=== PATIENT | male | born 1960 | race Caucasian/White ===

== ENCOUNTER 2016-11-28 07:18 | Outpatient (CLI) | payer OTHER | END 2016-11-28 07:19 | disposition home or self-care (01) | DX: E78.5 Hyperlipidemia, unspecified (principal); Z12.5 Encounter for screening for malignant neoplasm of prostate ==

== ENCOUNTER 2017-07-26 07:22 | Outpatient (CLI) | payer BC, OTHER ==
[2017-07-26 19:25] LABS: BASOPHILS % (AUTO) 0.7 %; EOSINOPHILS # (AUTO) 0.1 10^3/uL (0.0-0.7); EOSINOPHILS % (AUTO) 2.4 %; HCT - HEMATOCRIT 48.2 % (42.0-52.0); LYMPHOCYTES # (AUTO) 1.4 10^3/uL (1.5-3.5); LYMPHOCYTES % (AUTO) 26.9 %; MEAN CORPUSCULAR HEMOGLOBIN 31.3 pg (27.0-31.0); MEAN CORPUSCULAR HGB CONC 33.2 g/dL (32.0-36.0); MEAN CORPUSCULAR VOLUME 94.3 fL (80.0-94.0); MEAN PLATELET VOLUME 8.4 fL (7.4-11.4); MONOCYTES # (AUTO) 0.5 10^3/uL (0.0-1.0); MONOCYTES % (AUTO) 10.4 %; NEUTROPHILS # (AUTO) 3.1 10^3/uL (1.5-6.6); NEUTROPHILS % (AUTO) 59.6 %; NUCLEATED RED BLOOD CELLS AUTO 0.1 /100WBC; RED BLOOD COUNT 5.11 10^6/uL (4.70-6.10); RED CELL DISTRIBUTION WIDTH 13.3 % (12.0-15.0); UNCORRECTED WHITE BLOOD COUNT 5.2 x10^3/uL; WHITE BLOOD COUNT 5.2 x10^3/uL (4.8-10.8)
[2017-07-26 20:10] LABS: HEMOGLOBIN A1C 0.72 g/dL
[2017-07-26 20:30] LABS: ALBUMIN/GLOBULIN RATIO 1.5 (1.0-2.2); BILIRUBIN,TOTAL 0.5 mg/dL (0.2-1.0); BUN - BLOOD UREA NITROGEN 21 mg/dL (6-20); CALCIUM 9.1 mg/dL (8.5-10.3); CARBON DIOXIDE - CO2 25 mmol/L (21-32); CHLORIDE 108 mmol/L (101-111); CHOL/HDL RATIO 3.2 (<5.0); CHOLESTEROL 168 mg/dL; CREATININE 0.8 mg/dL (0.6-1.2); GFR - MDRD 99 (>89); GLUCOSE 106 mg/dL (70-100); HDL CHOLESTEROL 52 mg/dL; POTASSIUM 4.5 mmol/L (3.5-5.0); SODIUM 137 mmol/L (135-145); TOTAL PROTEIN 6.8 g/dL (6.7-8.2); TRIGLYCERIDES 64 mg/dL; VLDL CHOLESTEROL 13 mg/dL
== END 2017-07-26 07:23 | disposition home or self-care (01) ==
LOC: LAB.WCP 07:22
PROVIDERS: ATTEND Family Medicine
DX: Z00.00 Encounter for general adult medical examination without abnormal findings (principal); R73.01 Impaired fasting glucose
CPT/HCPCS: 36415; 80053; 80061; 82043; 83036; 85025

== ENCOUNTER 2017-10-09 14:35 | Outpatient (CLI) | payer BC ==
--- NOTE | 2017-10-09 19:15 | CT Report ---
CT CHEST WITHOUT CONTRAST: 10/09/2017 CLINICAL INDICATION: Smoker, personal history of lung cancer, status post right lobectomy, [id number] history of smoking, quit within the 15 years. TECHNIQUE: Axial CT images of the chest were obtained without intravenous contrast, using low dose screening technique. In accordance with CT protocol optimization, one or more of the following dose reduction techniques were utilized for this exam: Automated exposure control, adjustment of mA and/or KV based on patient size, or use of iterative reconstructive technique. COMPARISON: Multiple previous chest CTs, most recently 01/06/2015. FINDINGS: The heart and great vessels are unremarkable. Postoperative changes in the right hilum are stable. The lungs again demonstrate extensive emphysema. Minimal scarring in the right lower lobe is stable. There are stable nodules in the lingula and left lower lobe, measuring up to 3 mm maximal diameter. No new or enlarging pulmonary nodule or mass lesion is identified. No effusion or pneumothorax is present. Osseous structures demonstrate degenerative changes. Limited evaluation of upper abdominal structures demonstrates normal adrenal glands. IMPRESSION: STABLE POSTOPERATIVE CHANGES. NO SIGNIFICANT INTERVAL CHANGE. RECOMMENDATIONS: Continue annual screening with low dose chest CT in 12 months. LUNG-RADS category 2 benign findings. TD: 10/09/2017 19:13
== END 2017-10-09 14:36 | disposition home or self-care (01) ==
LOC: DI 14:35
PROVIDERS: ATTEND Family Medicine
DX: Z12.2 Encounter for screening for malignant neoplasm of respiratory organs (principal); Z87.891 Personal history of nicotine dependence; Z85.118 Personal history of other malignant neoplasm of bronchus and lung; Z90.2 Acquired absence of lung [part of]

== ENCOUNTER 2017-10-23 17:45 | Outpatient (CLI) | payer BC ==
--- NOTE | 2017-10-24 09:36 | XRAY Report ---
STANDING THREE VIEW RIGHT KNEE: 10/23/2017 CLINICAL INDICATION: Pain. FINDINGS: Standing AP, lateral, sunrise views of the right knee demonstrate minimal osteoarthritis, with tiny marginal osteophytes. There is no evidence of acute fracture or dislocation. A small effusion is noted. IMPRESSION: MINIMAL OSTEOARTHRITIS, WITH A SMALL EFFUSION. TD: 10/24/2017 09:35
== END 2017-10-23 17:46 | disposition home or self-care (01) ==
LOC: DI 17:45
PROVIDERS: ATTEND Family Medicine
DX: M17.11 Unilateral primary osteoarthritis, right knee (principal); M25.461 Effusion, right knee

== ENCOUNTER 2019-01-31 08:00 | Outpatient (CLI) | payer BC ==
[2019-01-31 14:00] LABS: BASOPHILS % (AUTO) 1.1 %; EOSINOPHILS # (AUTO) 0.2 10^3/uL (0.0-0.7); EOSINOPHILS % (AUTO) 3.4 %; HGB - HEMOGLOBIN 16.4 g/dL (14.0-18.0); LYMPHOCYTES # (AUTO) 1.1 10^3/uL (1.5-3.5); LYMPHOCYTES % (AUTO) 24.6 %; MEAN CORPUSCULAR HEMOGLOBIN 31.4 pg (27.0-31.0); MEAN CORPUSCULAR HGB CONC 33.9 g/dL (32.0-36.0); MEAN CORPUSCULAR VOLUME 92.8 fL (80.0-94.0); MEAN PLATELET VOLUME 8.2 fL (7.4-11.4); MONOCYTES # (AUTO) 0.5 10^3/uL (0.0-1.0); MONOCYTES % (AUTO) 11.8 %; NEUTROPHILS # (AUTO) 2.7 10^3/uL (1.5-6.6); NEUTROPHILS % (AUTO) 59.1 %; PLT - PLATELET COUNT 253 10^3/uL (130-450); RED BLOOD COUNT 5.21 10^6/uL (4.70-6.10); RED CELL DISTRIBUTION WIDTH 13.2 % (12.0-15.0); WHITE BLOOD COUNT 4.5 x10^3/uL (4.8-10.8)
[2019-01-31 14:16] LABS: ALBUMIN 4.3 g/dL (3.2-5.5); ALBUMIN/GLOBULIN RATIO 1.4 (1.0-2.2); ALKALINE PHOSPHATASE 55 IU/L (42-121); ALT ALANINE AMINOTRANSFERASE 32 IU/L (10-60); AST ASPARTATE AMINOTRANSFERASE 25 IU/L (10-42); BILIRUBIN,TOTAL 0.7 mg/dL (0.2-1.0); BUN - BLOOD UREA NITROGEN 19 mg/dL (6-20); CALCIUM 9.2 mg/dL (8.5-10.3); CARBON DIOXIDE - CO2 26 mmol/L (21-32); CHLORIDE 103 mmol/L (101-111); CHOL/HDL RATIO 2.9 (<5.0); CHOLESTEROL 167 mg/dL; CREATININE 0.8 mg/dL (0.6-1.2); GFR - MDRD 99 (>89); GLUCOSE 114 mg/dL (70-100); HDL CHOLESTEROL 57 mg/dL; LDL CHOLESTEROL,CALCULATED 101 mg/dL; LDL/HDL RATIO 1.8 (<3.6); SODIUM 139 mmol/L (135-145); TOTAL PROTEIN 7.4 g/dL (6.7-8.2); VLDL CHOLESTEROL 9 mg/dL
[2019-02-01 12:20] LABS: HEPATITIS C ANTIBODY NON-REACTIVE (NON-REACTIVE)
== END 2019-01-31 23:59 | disposition home or self-care (01) ==
LOC: LAB.WCP 08:00
PROVIDERS: ATTEND Family Medicine
DX: Z00.00 Encounter for general adult medical examination without abnormal findings (principal); Z12.5 Encounter for screening for malignant neoplasm of prostate; Z11.59 Encounter for screening for other viral diseases
CPT/HCPCS: 36415; 80053; 80061; 83721; 84153; 85025; 86803

== ENCOUNTER 2019-02-14 07:11 | Outpatient (CLI) | payer BC ==
--- NOTE | 2019-02-14 12:57 | CT Report ---
Reason: NICOTINE ADDICTION,IN REMISSION Procedure Date: 02/14/2019 Accession Number: [id number] / [id number] Procedure: CT - Low Dose Lung Cancer Screen CPT Code: FULL RESULT: EXAM CT LUNG SCREEN EXAM DATE: 02/14/2019 07:23 AM. HISTORY: 58-year-old patient with [id number] smoking history. Currently smoking: No. The patient quit smoking within the last 15 years. COMPARISON: CHEST SCREEN LOW DOSE W/O 10/09/2017 3:01 PM. TECHNIQUE: CT examination of the entire thorax without contrast was performed using low-dose technique. Thin section coronal, axial, sagittal and MIP axial images were obtained. In accordance with CT protocol optimization, one or more of the following dose reduction techniques were utilized for this exam: automated exposure control, adjustment of mA and/or KV based on patient size, or use of iterative reconstructive technique. FINDINGS: Nodules: Right upper lobe: Surgically absent. Right middle lobe: 4 mm nodule image 24 series 4. Right lower lobe: 1.9 x 1.4 cm groundglass nodule image 131. Left upper lobe: 4 mm nodule image 117. 1.0 x 0.9 cm Subsolid nodule image 132. Left lower lobe: 3 mm perifissural nodule image 196. 3 mm nodule image 107. Two 3 mm nodules on image 133. Emphysema: Moderate. Pleura: Mild pleural thickening on the posterior medial right pleura adjacent to a fissure with triangular consolidation containing bronchiectasis, most likely atelectasis due to scarring adhesion, possibly postsurgical. Pleural thickening focally also seen on image 31 series 4, related to the aforementioned finding. Aorta: Unremarkable. Mediastinum: Postsurgical changes related to right upper lobectomy. No overt mediastinal lymphadenopathy. Coronary calcifications: None. Other pulmonary findings: See pleura. Other extrapulmonary findings: None. IMPRESSION: Lung-RADS ASSESSMENT CATEGORY: 3 - probably benign. Probability of malignancy: 1-2%. RECOMMENDATION: Follow-up low-dose screening chest CT in 6 months as per lung RADS guidelines. RADIA
== END 2019-02-14 07:12 | disposition home or self-care (01) ==
LOC: DI 07:11
PROVIDERS: ATTEND Family Medicine
DX: Z12.2 Encounter for screening for malignant neoplasm of respiratory organs (principal); J43.9 Emphysema, unspecified; Z87.891 Personal history of nicotine dependence

== ENCOUNTER 2019-08-07 10:25 | Outpatient (CLI) | payer BC ==
--- NOTE | 2019-08-07 13:17 | XRAY Report ---
Reason: RIGHT ANKLE PAIN Procedure Date: 08/07/2019 Accession Number: [id number] / [id number] Procedure: WCP - Ankle 3 View RT CPT Code: Final Report FULL RESULT: EXAM: RIGHT ANKLE RADIOGRAPHY EXAM DATE: 08/07/2019 10:25 AM. CLINICAL HISTORY: RIGHT ANKLE PAIN. COMPARISON: None. TECHNIQUE: 3 views. FINDINGS: Bones: Os trigonum is noted. No fractures or bone lesions. Joints: Question trace tibiotalar joint effusion. No subluxations. The ankle mortise is normally aligned. Soft Tissues: Soft tissue swelling is seen in the ankle region lateral greater than medial. No radiopaque foreign body or soft tissue gas. IMPRESSION: No acute osseous abnormality. Soft tissue swelling and potential tibiotalar joint effusion, consistent with report of injury. RAD[facility]
== END 2019-08-07 10:26 | disposition home or self-care (01) ==
LOC: DI.WCP 10:25
PROVIDERS: ATTEND Family Medicine
DX: M25.571 Pain in right ankle and joints of right foot (principal); M79.89 Other specified soft tissue disorders

== ENCOUNTER 2020-02-06 07:26 | Outpatient (CLI) | payer BC, OTHER ==
[2020-02-06 12:01] LABS: BASOPHILS # (AUTO) 0.1 10^3/uL (0.0-0.1); EOSINOPHILS # (AUTO) 0.1 10^3/uL (0.0-0.7); EOSINOPHILS % (AUTO) 2.1 %; HGB - HEMOGLOBIN 15.5 g/dL (14.0-18.0); LYMPHOCYTES # (AUTO) 1.3 10^3/uL (1.5-3.5); LYMPHOCYTES % (AUTO) 21.9 %; MEAN CORPUSCULAR HEMOGLOBIN 29.3 pg (27.0-31.0); MEAN CORPUSCULAR HGB CONC 32.1 g/dL (32.0-36.0); MEAN CORPUSCULAR VOLUME 91.3 fL (80.0-94.0); MEAN PLATELET VOLUME 9.7 fL (7.4-11.4); MONOCYTES # (AUTO) 0.7 10^3/uL (0.0-1.0); MONOCYTES % (AUTO) 11.9 %; NEUTROPHILS # (AUTO) 3.7 10^3/uL (1.5-6.6); NEUTROPHILS % (AUTO) 62.9 %; PLT - PLATELET COUNT 325 10^3/uL (130-450); RED BLOOD COUNT 5.29 10^6/uL (4.70-6.10); WHITE BLOOD COUNT 5.8 x10^3/uL (4.8-10.8)
[2020-02-06 12:23] LABS: ALBUMIN 4.2 g/dL (3.2-5.5); ALBUMIN/GLOBULIN RATIO 1.3 (1.0-2.2); ALKALINE PHOSPHATASE 69 IU/L (42-121); ALT ALANINE AMINOTRANSFERASE 29 IU/L (10-60); AST ASPARTATE AMINOTRANSFERASE 24 IU/L (10-42); BILIRUBIN,TOTAL 0.7 mg/dL (0.2-1.0); BUN - BLOOD UREA NITROGEN 20 mg/dL (6-20); CARBON DIOXIDE - CO2 29 mmol/L (21-32); CHLORIDE 99 mmol/L (101-111); CHOL/HDL RATIO 3.6 (<5.0); CHOLESTEROL 193 mg/dL; CREATININE 0.7 mg/dL (0.6-1.2); GLUCOSE 112 mg/dL (70-100); HDL CHOLESTEROL 53 mg/dL; LDL CHOLESTEROL,CALCULATED 123 mg/dL; LDL/HDL RATIO 2.3 (<3.6); SODIUM 136 mmol/L (135-145); TOTAL PROTEIN 7.4 g/dL (6.7-8.2); VLDL CHOLESTEROL 17 mg/dL
[2020-02-06 12:28] LABS: HB2 TOTAL 16.4 g/dL; HEMOGLOBIN A1C 0.65 g/dL; HEMOGLOBIN A1C % 5.8 % (4.6-6.2)
== END 2020-02-06 23:59 | disposition home or self-care (01) ==
LOC: LAB.WCP 07:26
PROVIDERS: ATTEND Family Medicine
DX: I10 Essential (primary) hypertension (principal); E78.5 Hyperlipidemia, unspecified; R73.01 Impaired fasting glucose; Z12.5 Encounter for screening for malignant neoplasm of prostate
CPT/HCPCS: 36415; 80053; 80061; 83036; 83721; 84153; 85025

== ENCOUNTER 2020-04-19 07:14 | Day surgery (SDC) | payer OTHER ==
[2020-04-19] MEDS ORDERED: LACTATED RINGERS 1,000 ML IV ONE ×2 (07:18→09:49)
[2020-04-19] MEDS ORDERED: fentaNYL 250 MCG/5 ML VIAL IVP ONE (09:09)
[2020-04-19] MEDS ORDERED: MIDAZOLAM 2 MG/2 ML VIAL IVP ONE (09:09)
[2020-04-19 10:21] VITALS: BP 130/91
== END 2020-04-19 07:15 | disposition home or self-care (01) ==
LOC: SDS 07:14
PROVIDERS: ATTEND Internal Medicine Gastroenterology
PROC: 0DBN8ZZ Excision of Sigmoid Colon, Via Natural or Artificial Opening Endoscopic (ICD-10-PCS; principal; 2020-04-19 08:15)
DX: Z12.11 Encounter for screening for malignant neoplasm of colon (principal); K63.5 Polyp of colon; K57.30 Diverticulosis of large intestine without perforation or abscess without bleeding; I10 Essential (primary) hypertension; E78.5 Hyperlipidemia, unspecified; Z90.2 Acquired absence of lung [part of]; Z85.118 Personal history of other malignant neoplasm of bronchus and lung; Z87.891 Personal history of nicotine dependence
CPT/HCPCS: 45380; J3010; J7120

== ENCOUNTER 2021-02-10 08:00 | Outpatient (CLI) | payer OTHER ==
[2021-02-10 11:50] LABS: BASOPHILS % (AUTO) 0.7 %; EOSINOPHILS # (AUTO) 0.1 10^3/uL (0.0-0.7); EOSINOPHILS % (AUTO) 1.9 %; HCT - HEMATOCRIT 49.6 % (42.0-52.0); HGB - HEMOGLOBIN 16.5 g/dL (14.0-18.0); LYMPHOCYTES # (AUTO) 1.1 10^3/uL (1.5-3.5); LYMPHOCYTES % (AUTO) 21.2 %; MEAN CORPUSCULAR HEMOGLOBIN 31.5 pg (27.0-31.0); MEAN CORPUSCULAR HGB CONC 33.3 g/dL (32.0-36.0); MEAN CORPUSCULAR VOLUME 94.7 fL (80.0-94.0); MEAN PLATELET VOLUME 9.6 fL (7.4-11.4); MONOCYTES # (AUTO) 0.5 10^3/uL (0.0-1.0); NEUTROPHILS # (AUTO) 3.6 10^3/uL (1.5-6.6); PLT - PLATELET COUNT 296 10^3/uL (130-450); RED BLOOD COUNT 5.24 10^6/uL (4.70-6.10); RED CELL DISTRIBUTION WIDTH 12.1 % (12.0-15.0); WHITE BLOOD COUNT 5.4 x10^3/uL (4.8-10.8)
[2021-02-10 12:33] LABS: ESTIMATED AVERAGE GLUCOSE 123 mg/dL (70-100); HEMOGLOBIN A1c% 5.9 % (4.27-6.07)
[2021-02-10 12:50] LABS: ALBUMIN 4.5 g/dL (3.2-5.5); ALBUMIN/GLOBULIN RATIO 1.6 (1.0-2.2); ALKALINE PHOSPHATASE 53 IU/L (42-121); ALT ALANINE AMINOTRANSFERASE 43 IU/L (10-60); AST ASPARTATE AMINOTRANSFERASE 31 IU/L (10-42); BILIRUBIN,TOTAL 0.5 mg/dL (0.2-1.0); BUN - BLOOD UREA NITROGEN 23 mg/dL (6-20); CALCIUM 9.6 mg/dL (8.5-10.3); CARBON DIOXIDE - CO2 28 mmol/L (21-32); CHLORIDE 101 mmol/L (101-111); CHOL/HDL RATIO 3.7 (<5.0); CHOLESTEROL 212 mg/dL; CREATININE 0.8 mg/dL (0.6-1.2); GFR - MDRD 98 (>89); GLUCOSE 113 mg/dL (70-100); HDL CHOLESTEROL 58 mg/dL; LDL CHOLESTEROL,CALCULATED 141 mg/dL; LDL/HDL RATIO 2.4 (<3.6); SODIUM 137 mmol/L (135-145); TOTAL PROTEIN 7.3 g/dL (6.7-8.2); TRIGLYCERIDES 64 mg/dL; URIC ACID 4.8 mg/dL (2.6-7.2); VLDL CHOLESTEROL 13 mg/dL
== END 2021-02-10 23:59 | disposition home or self-care (01) ==
LOC: LAB.WCP 08:00
PROVIDERS: ATTEND Family Medicine
DX: R73.01 Impaired fasting glucose (principal); E78.5 Hyperlipidemia, unspecified; Z12.5 Encounter for screening for malignant neoplasm of prostate; M79.672 Pain in left foot; I10 Essential (primary) hypertension
CPT/HCPCS: 36415; 80053; 80061; 83036; 83721; 84153; 84550; 85025

== ENCOUNTER 2021-03-16 07:18 | Outpatient (CLI) | payer OTHER ==
--- NOTE | 2021-03-16 08:35 | CT Report ---
PROCEDURE: Low Dose Lung Cancer Screen INDICATIONS: NICOTINE ADDICTION IN REMISSION TECHNIQUE: Noncontrast low-dose images were acquired from the pulmonary apices to the posterior costophrenic ang les. Multiplanar MIP reformats were then acquired. For radiation dose reduction, the following was used: automated exposure control, adjustment of mA and/or kV according to patient size. COMPARISON: 03/26/2020, 09/16/2018, 10/09/2017. FINDINGS: Image quality: Excellent. Lungs and pleura: Moderate to severe centrilobular emphysema, left greater than right. Chronic focal peripheral remote right upper lobectomy. Atelectasis versus scarring focally in the superior segment of right lower lob e. Stable pulmonary nodules are as follows: Nodule 1: Right apex, 3 mm, image 56/4. Nodule 2: Subtle unchanged groundglass opacity, current image 290/4 and previous image 277/4 Nodules 3 and 4:2 separate pulmonary nodules in relative close proximity in the left lower lobe, jaylan uring 4 mm each. Reference image 274/4. Nodule 5: Inferior basal segment left lower lobe, image 226/4, 3 mm. Mediastinum: Heart size is normal. No pericardial effusion. No mediastinal adenopathy by size crit eria. Thoracic aorta and central pulmonary arteries are normal in size. Esophagus is normal in isabelle erick. No hiatal hernia. Bones and chest wall: No suspicious bony lesions. No vertebral body compression fractures. No axil harley or supraclavicular adenopathy by size criteria. The thyroid is poorly visualized secondary to l ow-dose techniques. Abdomen: Visualized upper abdomen solid organs and bowel loops appear normal in the absence of contr ast. IMPRESSION: 1. LungRads Category 2: Benign appearance or behavior-nodules with a very low likelihood of becoming a clinically active cancer due to size or lack of growth. Multiple pulmonary nodules as described abo ve 2. Annual follow-up low-dose noncontrast CT of the chest is recommended for lung cancer screening. 3. Clinically significant or potentially clinically significant findings (nonlung cancer): Moderate t o severe centrilobular emphysema, remote right upper lobe resection, mild coronary artery calcificati ons. CLINICAL RECOMMENDATION STATEMENTS: In patients <35 years with an ITN detected on CT, MRI, or extrathyroidal ultrasound, the Committee re commends further evaluation with dedicated thyroid ultrasound if the nodule is ?1 cm and has no suspi cious imaging features, and if the patient has normal life expectancy. In patients ?35 years with an ITN detected on CT, MRI, or extrathyroidal ultrasound, the Committee re commends further evaluation with dedicated thyroid ultrasound if the nodule is ?1.5 cm and has no anthony picious imaging features, and if the patient has normal life expectancy. (ACR, 2014) Reviewed by: Milton Reyes MD on 03/16/2021 8:34 AM PDT Approved by: Milton Reyes MD on 03/16/2021 8:34 AM PDT Station ID: [id number]
== END 2021-03-16 07:19 | disposition home or self-care (01) ==
LOC: DI 07:18
PROVIDERS: ATTEND Family Medicine
DX: Z12.2 Encounter for screening for malignant neoplasm of respiratory organs (principal); Z87.891 Personal history of nicotine dependence; R91.8 Other nonspecific abnormal finding of lung field

== ENCOUNTER 2022-03-24 13:42 | Emergency (ER) | payer OTHER ==
[2022-03-24] MEDS ORDERED: lidocaine 1% 20 ML MDV SUBQ ONE (15:17)
[2022-03-24] MEDS ORDERED: BACITRACIN ZINC OINT 1 PACKET TOP STA (15:18)
[2022-03-24] MEDS ORDERED: LIDOCAINE 1% 2 ML VIAL MC ONE (15:30)
[2022-03-24] MEDS ORDERED: cefTRIAXone 1 GM VIAL IM STA (15:30)
--- NOTE | 2022-03-24 15:43 | XRAY Report ---
PROCEDURE: Finger(s) LT INDICATIONS: TRAUMA TECHNIQUE: AP hand, views of the third and fourth finger(s) acquired. COMPARISON: None FINDINGS: Bones: There is amputation of the second digit distal to the midportion of the middle phalanx. There is a comminuted fracture of the distal third phalanx most severe distally although fracture lucency i s present at the base extending into the articular surface. No suspicious bony lesions. Soft tissues: No suspicious soft tissue calcifications. Soft tissue laceration is present at the th ird digit. IMPRESSION: Partial second digit amputation as well as comminuted fracture of the third distal phalanx. Reviewed by: America Rizzo MD on 03/24/2022 3:42 PM PDT Approved by: America Rizzo MD on 03/24/2022 3:42 PM PDT Station ID: [id number]
--- NOTE | 2022-03-24 16:30 | ED Physician Documentation ---
History of Present Illness - Stated complaint Stated Complaint: FINGER CUT ON LEFT HAND - Chief complaint Chief Complaint: Laceration - Additonal information Additional information: 5-year-old male presents emergency department for evaluation of left finger lacerations sustained when using a table saw. He has a macerated distal middle finger laceration as well as a distal tip ring finger laceration. Uncertain of last tetanus. He is right-hand dominant. He does have a history of previous left index finger tip amputation also from a workplace injury many years ago Review of Systems Constitutional: reports: Reviewed and negative Throat: reports: Reviewed and negative Cardiac: reports: Reviewed and negative Respiratory: reports: Reviewed and negative Skin: reports: Laceration (s) Musculoskeletal: reports: Extremity pain PD PAST MEDICAL HISTORY - Past Medical History Past Medical History: Yes Cardiovascular: Hypertension Respiratory: Other Endocrine/Autoimmune: None GI: None, GERD : None HEENT: Chronic vision loss Psych: None Musculoskeletal: Osteoarthritis Derm: Eczema, Rosacea Other Past Medical History: lung cancer 2013 - Past Surgical History Past Surgical History: Yes Cardiovascular: Lobectomy, Other HEENT: Tonsil/Adenoidectomy - Present Medications Home Medications: Ambulatory Orders Medication Instructions Recorded Confirmed Losartan Potassium 100 mg PO DAILY 04/16/20 04/16/20 Omeprazole 20 mg PO DAILY 04/16/20 04/16/20 hydroCHLOROthiazide 25 mg PO DAILY 04/16/20 04/16/20 [Hydrochlorothiazide] cephALEXin [Keflex] 500 mg PO Q6H #28 cap 03/24/22 oxyCODONE [Roxicodone] 5 mg PO TID PRN #20 tablet 03/24/22 - Allergies Allergies/Adverse Reactions: Allergies Allergy/AdvReac Type Severity Reaction Status Date / Time hydrocodone Allergy Itching Verified 03/24/22 14:12 morphine Allergy Itching Verified 03/24/22 14:12 lisinopril AdvReac Unknown Verified 03/24/22 14:12 Penicillins AdvReac itching Verified 03/24/22 14:12 and anxious - Social History Does the pt smoke?: No Smoking Status: Never smoker PD ED PE EXPANDED - General General: Alert, No acute distress - Extremities Extremities: Left hand (Macerated distal middle fingertip laceration that goes through the lateral side of the nailbed. Patient is able to flex and extend at DIP joint. Sensation is preserved.), Left finger(s) (2 cm laceration slightly macerated distal tip of index finger) Results - Vitals Vitals: Vital Signs - 24 hr 03/24/22 03/24/22 14:09 14:12 Temperature 36.3 C L 36.3 C L Heart Rate 83 83 Respiratory 16 16 Rate Blood Pressure 167/93 H 167/93 H O2 Saturation 93 93 Oxygen O2 Source Room air Procedures - Laceration (location) left middle finger Length in cm: 3 Wound type: Irregular, Into muscle, Exposure of bone Neurovascular status: Sensory intact, Motor intact Tendon involvement: Tendon intact Anesthesia: Lidocaine 1% Wound preparation: Irrigated copiously NS, Debrided extensively, Wound explored, To the base, Multiple flaps aligned Skin layer closure: Interrupted, Size #-0 - enter number (4), Sutures - enter # (4) Other: Tetanus UTD, Other (Macerated left distal middle finger laceration required debridement of the traumatic edges. The wound was approximated using a total of 4 sutures. Nailbed did require some laceration Repair) ring finger laceration left Length in cm: 2 Wound type: Irregular, Clean Neurovascular status: Sensory intact, Motor intact Tendon involvement: Tendon intact Anesthesia: Lidocaine 1% Skin layer closure: Nylon, Interrupted, Size #-0 - enter number (4), Sutures - enter # (3) Other: Patient tolerated well, No complications, Neurovascular intact, Tetanus UTD, Other (Left ring finger laceration at the distal tip. Wound edges were approximated using 3 sutures. Macerated portions of the wound edges were cut away.) PD MEDICAL DECISION MAKING - ED course Complexity details: considered differential, d/w patient, d/w family ED course: 5-year-old male presents emergency department for evaluation of left ring and middle finger laceration sustained when using a table saw at work. 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 He is right-hand dominant. Tetanus was updated today. The x-ray does show a distal comminuted fracture of the distal phalanx. This is considered an open fracture. He was administered Ceftriaxone here in the emergency department and will be sent home with prescription for Keflex. He did have a smaller albeit macerated ring finger wound that was also debrided and approximated using sutures. He is advised to have follow-up with a provider within the 1 week for wound check. Further time off work will be determined by the alternative provider though at this time I am giving him 1 week. Labor and industries claim #[id number] completed Departure - Departure Disposition: 01 Home, Self Care Clinical Impression: Laceration of middle finger Qualifiers: Encounter type: initial encounter Damage to nail status: with damage Foreign body presence: without foreign body Laterality: left Qualified Code(s): S61.313A - Laceration without foreign body of left middle finger with damage to nail, initial encounter Phalanx, distal fracture of finger Qualifiers: Encounter type: initial encounter Finger: middle finger Fracture type: open Fracture alignment: nondisplaced Laterality: left Qualified Code(s): S62.663B - Nondisplaced fracture of distal phalanx of left middle finger, initial encounter for open fracture Laceration of ring finger Qualifiers: Encounter type: sequela Damage to nail status: with damage Foreign body presence: without foreign body Laterality: left Qualified Code(s): S61.315S - Laceration without foreign body of left ring finger with damage to nail, sequela Condition: Stable Record reviewed to determine appropriate education?: Yes Instructions: ED Fx Finger Open Prescriptions: cephALEXin [Keflex] 500 mg PO Q6H #28 cap oxyCODONE [Roxicodone] 5 mg PO TID PRN #20 tablet PRN Reason: Pain Comments: Napoleon you did sustain gain some macerated lacerations to your left middle and distal ring fingers. At the bedside we did have to debride some tissue and used suture simply to approximate the wounds but we did not fully close them as we were unable to. The x-ray does show a tuft fracture of the distal phalanx of your middle finger. Because of the laceration this is considered an open fracture. Please fill the prescription for the Keflex and begin taking as directed for the next week. In 24 hours you may gently change her dressing as shown at the bedside. As you have less drainage and weeping the wound should be allowed to be kept a little more dry as a wet macerated wound breeds infection. I am giving you 1 week off work from today however your return to work date is not clear as outside providers will need to determine when you have appropriate function and movement of the hand. I am prescribing a short course of narcotic pain medication for you. These are potentially dangerous and addictive medications that should be used carefully. These medications may constipate you. Take an dgwk-fye-ckzbrdo stool softener (docusate) twice daily with plenty of water while taking these medications. If you go 24 hours without a bowel movement, take [id number] miralax, per package instructions. Do not drink or drive while taking these medications. If you received narcotic or sedating medications while in the emergency de partment, do not drive for 24 hours. Store this medication in a safe, secure place and out of reach of children. It is a violation of federal law to give or sell this medication to another person or to use in a manner other than prescribed. The ED will not refill narcotic prescriptions, including prescriptions lost or stolen. To dispose of unwanted medications: 1. [facility] [address] in [place] has a medication drop box. They accept prescription medications (in pill form) Sunday through Sunday 9:00 a.m. to 5:00 p.m. 2. The [facility] accepts prescription medications (in pill form only) for disposal year round. Call for more information. 3. Contact the [facility] for the next [facility] sponsored prescription drug collection event. , [phone], or [phone]; Note that many narcotic pain relievers also contain Tylenol/acetaminophen. Please ensure that your total dose of acetaminophen from all sources does not exceed 3 g (3000 mg) per day.
[2022-03-24 16:57] VITALS: BP 153/97
== END 2022-03-24 16:57 | disposition home or self-care (01) ==
LOC: ED 13:42
DX: S61.215A Laceration without foreign body of left ring finger without damage to nail, initial encounter (principal); S62.633B Displaced fracture of distal phalanx of left middle finger, initial encounter for open fracture; W27.0XXA Contact with workbench tool, initial encounter; Y92.89 Other specified places as the place of occurrence of the external cause; Y99.0 Civilian activity done for income or pay
CPT/HCPCS: 12001; 13132; 73140; 96372; 99282; 99283; A9270

== ENCOUNTER 2022-05-03 07:26 | Outpatient (CLI) | payer OTHER ==
[2022-05-03 12:50] LABS: BASOPHILS # (AUTO) 0.1 10^3/uL (0.0-0.1); BASOPHILS % (AUTO) 0.9 %; EOSINOPHILS # (AUTO) 0.1 10^3/uL (0.0-0.7); EOSINOPHILS % (AUTO) 2.4 %; HCT - HEMATOCRIT 48.7 % (42.0-52.0); HGB - HEMOGLOBIN 16.3 g/dL (14.0-18.0); LYMPHOCYTES # (AUTO) 1.5 10^3/uL (1.5-3.5); LYMPHOCYTES % (AUTO) 26.6 %; MEAN CORPUSCULAR HEMOGLOBIN 31.1 pg (27.0-31.0); MEAN CORPUSCULAR HGB CONC 33.5 g/dL (32.0-36.0); MEAN CORPUSCULAR VOLUME 92.9 fL (80.0-94.0); MEAN PLATELET VOLUME 9.6 fL (7.4-11.4); MONOCYTES # (AUTO) 0.7 10^3/uL (0.0-1.0); MONOCYTES % (AUTO) 11.9 %; NEUTROPHILS # (AUTO) 3.2 10^3/uL (1.5-6.6); PLT - PLATELET COUNT 302 10^3/uL (130-450); RED BLOOD COUNT 5.24 10^6/uL (4.70-6.10); RED CELL DISTRIBUTION WIDTH 12.1 % (12.0-15.0); WHITE BLOOD COUNT 5.5 x10^3/uL (4.8-10.8)
[2022-05-03 13:37] LABS: ESTIMATED AVERAGE GLUCOSE 126 mg/dL (70-100); THYROID STIMULATING HORMONE 3.18 uIU/mL (0.34-5.60)
[2022-05-03 13:38] LABS: ALBUMIN 4.5 g/dL (3.2-5.5); ALBUMIN/GLOBULIN RATIO 1.5 (1.0-2.2); ALKALINE PHOSPHATASE 56 IU/L (42-121); ALT ALANINE AMINOTRANSFERASE 32 IU/L (10-60); AST ASPARTATE AMINOTRANSFERASE 22 IU/L (10-42); BILIRUBIN,TOTAL 0.7 mg/dL (0.2-1.0); BUN - BLOOD UREA NITROGEN 20 mg/dL (6-20); CALCIUM 9.8 mg/dL (8.5-10.3); CARBON DIOXIDE - CO2 31 mmol/L (21-32); CHLORIDE 98 mmol/L (101-111); CHOL/HDL RATIO 4.2 (<5.0); CHOLESTEROL 220 mg/dL; CREATININE 0.9 mg/dL (0.6-1.2); GFR - MDRD 86 (>89); GLUCOSE 108 mg/dL (70-100); HDL CHOLESTEROL 52 mg/dL; LDL CHOLESTEROL,CALCULATED 151 mg/dL; LDL/HDL RATIO 2.9 (<3.6); POTASSIUM 3.8 mmol/L (3.5-5.0); SODIUM 139 mmol/L (135-145); TOTAL PROTEIN 7.6 g/dL (6.7-8.2); TRIGLYCERIDES 87 mg/dL; VLDL CHOLESTEROL 17 mg/dL
== END 2022-05-03 07:27 | disposition home or self-care (01) ==
LOC: LAB.N 07:26
PROVIDERS: ATTEND Nurse Practitioner Family
DX: I10 Essential (primary) hypertension (principal); E78.5 Hyperlipidemia, unspecified; Z12.5 Encounter for screening for malignant neoplasm of prostate
CPT/HCPCS: 36415; 80053; 80061; 83036; 83721; 84153; 84443; 85025

== ENCOUNTER 2022-05-18 07:10 | Outpatient (CLI) | payer OTHER ==
--- NOTE | 2022-05-18 13:10 | CT Report ---
PROCEDURE: Low Dose Lung Cancer Screen INDICATIONS: HIST OF SMOKING TECHNIQUE: Noncontrast low-dose axial images were acquired from the pulmonary apices to the posterior costophren ic angles. Multiplanar MIP reformats were then reconstructed. For radiation dose reduction, the follo wing was used: automated exposure control, adjustment of mA and/or kV according to patient size. COMPARISON: 03/16/2021 FINDINGS: Image quality: Excellent. Lungs and pleura: Stable right apical calcification. Stable groundglass nodule posterior medial righ t lower lobe, /268. Stable left posterior lateral lower lobe lung nodules immediately adjacent to ea ch other on image 257 series 4. Lateral left lower lobe lung nodule adjacent to a fissural lymph node , . Lingular nodule, solid, 4 mm, , stable Findings superimposed on moderate paraseptal emphysematous change, most severe at the left lung apex, and surgical resection of the right upper lobe with residual posterior medial linear scarring. Mediastinum: Heart size is normal. Moderate coronary artery calcification. No pericardial effusion. Several surgical clips along the right mediastinal margin and in the right suprahilar region. No med iastinal adenopathy by size criteria. Thoracic aorta and central pulmonary arteries are normal in si ze. Esophagus is normal in caliber. No hiatal hernia. Bones and chest wall: No suspicious bony lesions. No vertebral body compression fractures. No axil harley or supraclavicular adenopathy by size criteria. The thyroid gland is not well seen due to low-d ose technique. Abdomen: Visualized upper abdomen solid organs and bowel loops appear normal in the absence of contr ast. IMPRESSION: 1. Several bilateral small nodules, unchanged. 2. Right medial lower lobe groundglass nodule, also stable. 3. Surgical changes of prior right upper lobectomy without evidence of residual or recurrent disease. 4. Lung RADS category 2C, benign with history of cancer. Continued low-dose chest CT screening as hamida g as the patient meets established criteria. Reviewed by: Hannah Chairez MD on 05/18/2022 1:08 PM PDT Approved by: Hannah Chairez MD on 05/18/2022 1:08 PM PDT Station ID: [id number]
== END 2022-05-18 07:11 | disposition home or self-care (01) ==
LOC: DI 07:10
PROVIDERS: ATTEND Nurse Practitioner Family
DX: Z12.2 Encounter for screening for malignant neoplasm of respiratory organs (principal); R91.8 Other nonspecific abnormal finding of lung field; Z90.2 Acquired absence of lung [part of]; Z85.118 Personal history of other malignant neoplasm of bronchus and lung; Z87.891 Personal history of nicotine dependence

== ENCOUNTER 2022-06-16 07:08 | Outpatient (CLI) | payer OTHER ==
[2022-06-16 12:36] LABS: FECAL OCCULT BLOOD (FIT) NEGATIVE (NEGATIVE)
== END 2022-06-16 23:59 | disposition home or self-care (01) ==
LOC: LAB.N 07:08
PROVIDERS: ATTEND Nurse Practitioner Family
DX: K92.1 Melena (principal)
CPT/HCPCS: 82274

== ENCOUNTER 2022-06-28 20:35 | Outpatient (CLI) | payer OTHER | END 2022-06-28 20:36 | disposition home or self-care (01) | LOC: SC 20:35 | PROVIDERS: ATTEND Nurse Practitioner Family | DX: G47.33 Obstructive sleep apnea (adult) (pediatric) (principal); G47.61 Periodic limb movement disorder | CPT/HCPCS: 95810 ==

== ENCOUNTER 2022-07-04 14:29 | Outpatient (CLI) | payer OTHER ==
--- NOTE | 2022-07-04 15:03 | SLEEP CARE CONSULTATION ---
Information from patient questionnaire entered by Svitlana Esparza. I have reviewed and concur with the information entered by Svitlana Esparza. This document represents the service I personally performed and the decisions made by , Maria Teresa Gonzalez ARNP. History of Present Illness Service Date and Time: 07/04/2022 142 Initial [place] Sleepiness Scale score: 14 (10-14-22) Current [place] Sleepiness Scale score: 13 (07/04/2022) Additional HPI information: RAMONA PRUITT returns for follow up and results of the recently performed polysomnography. I explained the pathophysiology behind obstructive sleep apnea. We then spent quite a bit of time discussing different treatment options. For mild obstructive sleep apnea, surgery and oral appliance are alternatives to nasal CPAP therapy but in moderate or severe cases, nasal CPAP is the most effective and reliable treatment. Because apnea is primarily in supine position, then positional management therapy could be effective. Methods discussed such as positioning with pillows to prevent supine sleep. I reviewed the impact of weight changes on sleep apnea and strongly recommended losing weight. After some discussion, the patient opted to go with the nasal CPAP therapy. Bryan al autoCPAP set at 4-15 cmH20 will be ordered with rationale explained. A manual titration study will be ordered if unable to find optimal pressure with office adjustments. I explained how CPAP machine works and what to expect when using the machine. Using CPAP every night in order to get used to it was emphasized. Patient advised to put CPAP mask on before getting into bed so as not to fall asleep without CPAP. To assist acclimation to CPAP use, it could also be used for a short time during day while reading or watching TV. The patient was instructed to call the CPAP supplier to discuss any mechanical problem that may occur. If the mask given is uncomfortable or is difficult to keep on through the night even with adjustment, contact the CPAP supplier as many will replace with another mask style if notified before 30 days. If snoring or perceives is not getting enough air or too much air from the machine, notify this office. Patient counseled not drink alcohol less than 4 hours before bedtime as it can increase snoring and apnea. Patient was cautioned about risks of drowsy driving until sleepiness symptoms resolve. Patient denies drowsy driving. Sleep Study - Results Type of Sleep Study: Polysomnography (COMPLETED 06-28-2022) Prior sleep studies: No Polysomnography/Home Sleep Study results: IMPRESSION: The quality of the study is good. The patient had normal sleep efficiency. The sleep architecture was abnormal for sleep fragmentation and reduced amount of time spent in slow wave sleep (N3). Respiratory monitoring showed severe obstructive sleep apnea-hypopnea (AHI = 45.0) associated with frequent arousals, oxyhemoglobin desaturation and moderate hypoxia (leti oxygen saturation of 73%) . The respiratory events occurred mainly during supine sleep (supine AHI = 57.1; non-supine = 5.38). Snore was moderate in intensity. There was moderate periodic leg movement of sleep not contributing to the sleep fragmentation. Cardiac rhythm was normal sinus rhythm without significant arrhythmia. No abnormal behavior (parasomnia) observed during the night. Allergies and Home Medications Drug allergies reviewed: Yes (as listed in EMR) Home medication list reviewed: Yes (no changes) Review of Systems Review of systems same as previous: Yes (no changes) Physical Exam Vital signs obtained and entered by: SVITLANA Bledsoe MA Blood Pressure: 128/80 (LEFT ARM) Cuff size: regular Heart Rate: 88 O2 Saturation: 94 Height: 5 ft 9 in Weight: 197 lb 12.8 oz Body Mass Index: 29.2 BMI Classification: Overweight Impression and Plan 1. Obstructive Sleep Apnea-Hypopnea Syndrome, severe, with lowest oxygen saturation of 73%. Obviously this is the cause of the patients symptoms of unrefreshed sleep, and excessive daytime sleepiness. Positive pressure therapy could benefit hypertension and emphysema. As mentioned above, the patient will be started on nasal autoCPAP therapy with pressure set at 4-15 cmH2O. Compliance guidelines also reviewed. A copy of compliance guidelines will be given for reference at check out. Because the apnea is more severe supine, I instructed to avoid sleeping supine using pillow positioning until able to start CPAP use. 2. Hypoxemia, moderate, with a leti oxygen saturation of 73% and 84.4 minutes spent under 90%. His baseline oxygen saturation was normal with an average oxygen saturation of 91%. 3. Periodic limb movement, moderate, that did not fragment patients sleep. Periodic limb movement of sleep (PLMS) is characterized by episodes of repetitive limb movements that occur during sleep and usually involve the lower limbs. The etiology is unknown. Caffeine can aggravate PLMS and should be avoided. Sleep hygiene methods can also improve sleep as well as lifestyle changes such as regular exercise. Patient was advised that no treatment is needed at this time. If symptoms increase, then further evaluation is indicated. * Nasal auto CPAP therapy, pressure at 4-15 cm H2O. * Attempt to lose weight. * Avoid alcohol consumption near bedtime. * Avoid supine sleep until using CPAP. * The patient is again cautioned about driving until sleepiness completely resolves. * Return one month after CPAP obtained. I will assess response to therapy and compliance at that time. Counseling Topics: Weight loss health impact Visit Type: In Office Time Spent with Patient (minutes): 22 Provider Statement: I spent 100% of the Face to Face Visit with the patient with greater than 50% spent counseling the patient and coordination of care.
[2022-07-04 15:04] VITALS: BP 128/80
== END 2022-07-04 14:30 | disposition home or self-care (01) ==
LOC: SC 14:29
PROVIDERS: ATTEND Nurse Practitioner Family
DX: G47.33 Obstructive sleep apnea (adult) (pediatric) (principal); R09.02 Hypoxemia; G47.61 Periodic limb movement disorder; E66.3 Overweight; Z68.29 Body mass index [BMI] 29.0-29.9, adult
CPT/HCPCS: 99212; 99213

== ENCOUNTER 2022-09-07 07:04 | Outpatient (CLI) | payer OTHER ==
[2022-09-07 12:14] LABS: ALBUMIN 4.1 g/dL (3.2-5.5); ALBUMIN/GLOBULIN RATIO 1.3 (1.0-2.2); ALKALINE PHOSPHATASE 60 IU/L (42-121); ALT ALANINE AMINOTRANSFERASE 24 IU/L (10-60); AST ASPARTATE AMINOTRANSFERASE 20 IU/L (10-42); BILIRUBIN,TOTAL 0.8 mg/dL (0.2-1.0); BUN - BLOOD UREA NITROGEN 19 mg/dL (6-20); CALCIUM 9.1 mg/dL (8.5-10.3); CARBON DIOXIDE - CO2 31 mmol/L (21-32); CHLORIDE 98 mmol/L (101-111); CHOL/HDL RATIO 2.7 (<5.0); CHOLESTEROL 127 mg/dL; CREATININE 0.8 mg/dL (0.6-1.2); GFR - MDRD 98 (>89); GLUCOSE 104 mg/dL (70-100); HDL CHOLESTEROL 47 mg/dL; LDL CHOLESTEROL,CALCULATED 71 mg/dL; LDL/HDL RATIO 1.5 (<3.6); POTASSIUM 3.6 mmol/L (3.5-5.0); SODIUM 137 mmol/L (135-145); TOTAL PROTEIN 7.3 g/dL (6.7-8.2); TRIGLYCERIDES 47 mg/dL; VLDL CHOLESTEROL 9 mg/dL
[2022-09-07 12:34] LABS: ESTIMATED AVERAGE GLUCOSE 123 mg/dL (70-100); HEMOGLOBIN A1c% 5.9 % (4.27-6.07)
== END 2022-09-07 07:05 | disposition home or self-care (01) ==
LOC: LAB.N 07:04
PROVIDERS: ATTEND Nurse Practitioner Family
DX: I10 Essential (primary) hypertension (principal); E78.5 Hyperlipidemia, unspecified; R73.03 Prediabetes
CPT/HCPCS: 36415; 80053; 80061; 83036; 83721

== ENCOUNTER 2022-10-06 15:33 | Outpatient (CLI) | payer OTHER ==
--- NOTE | 2022-10-06 16:43 | XRAY Report ---
PROCEDURE: Ribs w/PA Chest RT INDICATIONS: RIB PAIN TECHNIQUE: 2 views of the right ribs were acquired, along with a single view chest. COMPARISON: CT chest dated 05/18/2022 FINDINGS: Surgical changes and devices: None. Bones and chest wall: No fractures or dislocations. No suspicious bony lesions. Overlying soft tis sues appear unremarkable. Lungs and pleura: No pleural effusions or pneumothorax. Lungs appear clear. Mediastinum: Mediastinal contours appear normal. Heart size is normal. IMPRESSION: No gross displaced right rib fracture is seen. No acute cardiopulmonary pathology. Reviewed by: Conrado King MD on 10/06/2022 4:41 PM PST Approved by: Conrado King MD on 10/06/2022 4:41 PM PST Station ID: [id number]
== END 2022-10-06 15:34 | disposition home or self-care (01) ==
LOC: DI 15:33
PROVIDERS: ATTEND Registered Nurse
DX: R07.81 Pleurodynia (principal)

== ENCOUNTER 2022-11-16 08:28 | Outpatient (CLI) | payer OTHER ==
--- NOTE | 2022-11-16 08:55 | SLEEP CARE CONSULTATION ---
Information from patient questionnaire entered by Svitlana Esparza. I have reviewed and concur with the information entered by Svitlana Esparza. This document represents the service I personally performed and the decisions made by , Maria Teresa Gonzalez ARNP. History of Present Illness Service Date and Time: 11/16/2022827 Previous diagnosis: Severe, Obstructive Sleep Apnea-Hypopnea Syndrome AHI: 45.0 (in 06/2022) Reason for follow up: other (6 WEEK F/U) Equipment type: CPAP (RESMED Airsense 11, s/u 06/2022) Equipment obtained from: [facility] (getting supplies) Mask style: Nasal Mask brand: Resmed (Airfit [id number]) Backup mask available: Yes (old mask) Last cushion change: 3 weeks Prior sleep studies: No Type of Sleep Study: Polysomnography (COMPLETED 06-28-2022) HPI additional information: RAMOAN PRUITT was diagnosed to have severe, AHI 45.0, obstructive sleep apnea-hypopnea syndrome and returned today for CPAP therapy six weeks follow-up. Sleep Study - Results Type of Sleep Study: Polysomnography (COMPLETED 06-28-2022) Prior sleep studies: No CPAP Compliance Data - Data Reviewed with Patient Average duration of nightly device use: 6 hours 52 minutes Compliance rate %: 93 (10/02/22-11/14/22; 43/44 days used) Current pressure setting (cmH2O): 7-11 Average residual AHI: 0.4 Central apnea: 0.1 Obstructive apnea: 0.1 Hypopnea: 0.2 Subjective Missed days of use due to: reports: other (tried a night without mask, test) Patient concerns: denies: aerophagia, mask discomfort, air blowing in eyes, mask leak noise, condensation in mask/hose, nasal congestion, dry mouth, nose, throat, epistaxis Observed to snore while using device: No Current pressure setting perceived as: comfortable On therapy, patient: reports: sleeping better, awakening more refreshed, being m ore awake and alert during the day, more rested overall. denies: drowsiness while driving Initial [place] Sleepiness Scale score: 14 (10-14-22) Current [place] Sleepiness Scale score: 8 (11/16/22) Allergies and Home Medications Known drug allergies: Yes (as listed in EMR) Drug allergies reviewed: Yes Home medication list reviewed: Yes (no changes) Review of Systems Review of systems same as previous: Yes (no changes) Physical Exam Vital signs obtained and entered by: SVITLANA Bledsoe MA Blood Pressure: 134/82 (LEFT ARM) Cuff size: regular Heart Rate: 72 O2 Saturation: 97 Height: 5 ft 9 in Weight: 194 lb 6.4 oz Body Mass Index: 28.7 BMI Classification: Overweight Impression and Plan 1. Obstructive Sleep Apnea-Hypopnea Syndrome, severe, with good treatment compliance and good apnea control. On CPAP therapy, the patient has better sleep quality and is more rested overall. Patient has significant improvement of his sleep apnea and is getting comfortable with the CPAP therapy. He denies any issues/complaints with using his CPAP. He tried to go a night without his CPAP for comparison and noted a big difference in his restfulness. He is committed to continuing with CPAP therapy. Patient's apnea severity and rationale for treatment to reduce apnea, improve sleep quality and reduce cardiovascular and cerebrovascular events was reviewed. I also reviewed the benefit of consistent device use of CPAP for hypertension and emphysema. 2. Overweight, unspecified. Currently patients BMI is 28.7. Obesity increases the risk of apnea, CPAP pressure requirements and overall health risks especially cardiovascular and diabetes. Thus patient is advised to lose weight. * Continue auto CPAP pressure at 7-11 cmH2O * Notify me if snoring with mask or feeling that the pressure is too much or too little * Attempt to lose weight * Call this office if any problems using CPAP * Return for follow up in 1 year, or sooner if concerns arise Counseling Topics: Spare mask, Weight loss health impact Visit Type: In Office Time Spent with Patient (minutes): 21 Provider Statement: I spent 100% of the Face to Face Visit with the patient with greater than 50% spent counseling the patient and coordination of care.
[2022-11-16 08:56] VITALS: BP 134/82
== END 2022-11-16 08:29 | disposition home or self-care (01) ==
LOC: SC 08:28
PROVIDERS: ATTEND Nurse Practitioner Family
DX: G47.33 Obstructive sleep apnea (adult) (pediatric) (principal); E66.3 Overweight; Z68.28 Body mass index [BMI] 28.0-28.9, adult
CPT/HCPCS: 99212; 99213

== ENCOUNTER 2022-12-08 07:07 | Outpatient (CLI) | payer OTHER ==
--- NOTE | 2022-12-08 10:05 | XRAY Report ---
PROCEDURE: Hips 2V BILAT INDICATIONS: HIP PAIN,CHRONIC TECHNIQUE: 2 views of each hip were acquired. COMPARISON: None. FINDINGS: Bones: No acute fractures or malalignment. There is mild to moderate symmetric femoral acetabular mary int space loss. There is slight decreased femoral head neck offset bilaterally and small marginal fem oral head spurs, left slightly worse than right. Mild sclerosis and subcortical cystic changes in the right superior acetabulum. No suspicious bone lesions. Soft tissues: No suspicious soft tissue calcifications or masses. IMPRESSION: 1. 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 2. Femoral head neck morphology raising possibility of cam-type femoral acetabular impingement, left more so than right. Reviewed by: Hannah Chairez MD on 12/08/2022 10:03 AM PDT Approved by: Hannah Chairez MD on 12/08/2022 10:03 AM PDT Station ID: [id number]
== END 2022-12-08 07:08 | disposition home or self-care (01) ==
LOC: DI 07:07
PROVIDERS: ATTEND Nurse Practitioner Family
DX: M16.0 Bilateral primary osteoarthritis of hip (principal)

== ENCOUNTER 2023-06-07 08:00 | Outpatient (CLI) | payer OTHER ==
[2023-06-07 11:34] LABS: BASOPHILS # (AUTO) 0.1 10^3/uL (0.0-0.1); BASOPHILS % (AUTO) 1.1 %; EOSINOPHILS # (AUTO) 0.2 10^3/uL (0.0-0.7); EOSINOPHILS % (AUTO) 3.8 %; HCT - HEMATOCRIT 49.1 % (42.0-52.0); HGB - HEMOGLOBIN 16.3 g/dL (14.0-18.0); LYMPHOCYTES # (AUTO) 1.3 10^3/uL (1.5-3.5); MEAN CORPUSCULAR HEMOGLOBIN 31.7 pg (27.0-31.0); MEAN CORPUSCULAR HGB CONC 33.2 g/dL (32.0-36.0); MEAN CORPUSCULAR VOLUME 95.3 fL (80.0-94.0); MEAN PLATELET VOLUME 9.6 fL (7.4-11.4); MONOCYTES # (AUTO) 0.7 10^3/uL (0.0-1.0); MONOCYTES % (AUTO) 13.2 %; NEUTROPHILS % (AUTO) 56.7 %; PLT - PLATELET COUNT 307 10^3/uL (130-450); RED BLOOD COUNT 5.15 10^6/uL (4.70-6.10); RED CELL DISTRIBUTION WIDTH 12.4 % (12.0-15.0); WHITE BLOOD COUNT 5.3 x10^3/uL (4.8-10.8)
[2023-06-07 11:59] LABS: ALBUMIN 4.6 g/dL (3.2-5.5); ALBUMIN/GLOBULIN RATIO 1.9 (1.0-2.2); ALKALINE PHOSPHATASE 58 IU/L (42-121); ALT ALANINE AMINOTRANSFERASE 24 IU/L (10-60); AST ASPARTATE AMINOTRANSFERASE 20 IU/L (10-42); BILIRUBIN,TOTAL 0.5 mg/dL (0.2-1.0); BUN - BLOOD UREA NITROGEN 24 mg/dL (6-20); CALCIUM 9.9 mg/dL (8.5-10.3); CARBON DIOXIDE - CO2 34 mmol/L (21-32); CHLORIDE 101 mmol/L (101-111); CHOL/HDL RATIO 2.6 (<5.0); CHOLESTEROL 145 mg/dL; CREATININE 0.9 mg/dL (0.6-1.3); GFR - MDRD 85 (>89); GLUCOSE 112 mg/dL (74-104); HDL CHOLESTEROL 56 mg/dL; LDL CHOLESTEROL,CALCULATED 71 mg/dL; LDL/HDL RATIO 1.3 (<3.6); SODIUM 140 mmol/L (135-145); TRIGLYCERIDES 90 mg/dL (48-352); VLDL CHOLESTEROL 18 mg/dL
[2023-06-07 14:55] LABS: ESTIMATED AVERAGE GLUCOSE 123 mg/dL (70-100); HEMOGLOBIN A1c% 5.9 % (4.27-6.07)
== END 2023-06-07 23:59 | disposition home or self-care (01) ==
LOC: LAB.N 08:00
PROVIDERS: ATTEND Nurse Practitioner Family
DX: I10 Essential (primary) hypertension (principal); R73.03 Prediabetes; E78.5 Hyperlipidemia, unspecified
CPT/HCPCS: 36415; 80053; 80061; 83036; 83721; 85025

== ENCOUNTER 2023-06-19 07:09 | Outpatient (CLI) | payer OTHER ==
--- NOTE | 2023-06-19 12:25 | XRAY Report ---
PROCEDURE: Shoulder 3 View RT INDICATIONS: SHOULDER JOINT PAIN, RIGHT TECHNIQUE: 3 views of the shoulder were acquired. COMPARISON: None. FINDINGS: Bones: Degenerative changes of the acromioclavicular joint and glenohumeral joint. No fractures or d islocations. No suspicious bony lesions. Visualized ribs appear intact. Partial resection of the right sixth rib. Soft tissues: No suspicious soft tissue calcifications. The visualized lungs are within normal limi ts. IMPRESSION: Degenerative changes of the right glenohumeral joint and acromioclavicular joint. Reviewed by: Herber Vasques on 06/19/2023 12:24 PM PDT Approved by: Herber Vasques on 06/19/2023 12:24 PM PDT Station ID: [id number]
== END 2023-06-19 07:10 | disposition home or self-care (01) ==
LOC: DI 07:09
PROVIDERS: ATTEND Nurse Practitioner Family
DX: M19.011 Primary osteoarthritis, right shoulder (principal)